=== PATIENT | female | born 1970 | race Caucasian/White ===

== ENCOUNTER 2025-08-24 18:30 | Observation (INO) | payer BC, SELFPAY ==
[2025-08-24] VITALS (7 sets, daily range): BP systolic 108–145; BP diastolic 67–86; PULSE 87; O2SAT 100; BMI 39.3; BMI 38.4
--- NOTE | 2025-08-24 15:44 | ED.GENMED ---
History of Present Illness
General
Chief Complaint: Head Injury
Source: patient
Exam Limitations: none
Time Seen by Provider: 08/24/25 14:31
Nursing documentation reviewed up to this point in time: agreed with
History of Present Illness
History of Present Illness:
Patient's status post head injury after syncopal episode while she was at work, presents to ED secondary to continual headache, dizziness, slurred speech, and difficulty ambulating. On the day of the injury, patient was evaluated at different
emergency department, where she received normal CT scan along with workup. Since then, patient has followed up with her primary care physician multiple occasions, and was recently prescribed Topamax for ongoing headache, with mild improvement.
Patient has been referred to obtain MRI brain as an outpatient, neurology consultation. Unfortunately, for the patient, the earliest appointment available is in November or January of next year. Due to ongoing symptoms, patient did not feel that she
can wait until diagnosed. Denies fever or chills. Denies vomiting. Denies loss of appetite. Denies loss of sensation or weakness.
Past History
Past History
ED Past Medical History: Other (Psoriatic/osteo-/rheumatoid arthritis) and Other (Gastric bypass 2008 status post cholecystectomy)
Social History
Tobacco: Non-smoker
Alcohol: Occasional
Personal: Single
Family History
Family History: Other (Diabetes, coronary artery disease, breast cancer, bipolar)
Review of Systems
Review of Systems
Allergies reviewed?: Yes
All Other Systems: ROS reviewed and negative except as documented in HPI and ROS
Constitutional: Reports no symptoms
Respiratory: Reports no symptoms
Cardiac: Reports no symptoms; Denies chest pain or palpitations
ABD/GI: Reports no symptoms; Denies nausea or vomiting
: Reports no symptoms; Denies incontinence
Musculoskeletal: Reports no symptoms
Skin: Reports no symptoms
Neurological: Reports dizzy and headache
Phy Exam
Physical Exam
Physical Exam:
Physical Exam
General: mild distress, not acutely ill. afebrile
Head: nc/at. eomi
Neck: supple. normal range of motion.
Heart: s1/s2 regular rate and rhythm
Lungs: no acute respiratory distress. clear bilaterally
Abdomen: normal bowel sounds. not tender.
Neuro: alert and oriented x 3. no focal sensory/motor deficit. slowed/slurred speech, but coherent
Skin: no rash
Psychiatric: well kept. interactive and cooperative
Extremities: no edema. no calf tenderness.
Course
Orders/Labs/Results
Orders:
Orders
08/24/25 Breakfast
Regular
At Your Request: Full Participation
Does patient need a safe tray?: No
08/24/25 15:40
Physical Therapy Consult [Pt Eval And Treat] Urgent
Activity Level: As Tolerated
08/24/25 16:56
Basic Metabolic Panel Urgent
Complete Blood Count/No Diff Urgent
Magnesium Urgent
TSH Urgent
08/24/25 17:33
0.9% Sodium Chloride 500 ml [Nss] 500 ml IV BOLUS
Acetaminophen [Tylenol] 650 mg PO NOW STA
08/24/25 18:08
CT Head W/o Iv Contrast Stat
Comment:
Reason For Exam: JAMES
08/24/25 18:19
Admit/Transfer Patient As Directed
Co-Sign Provider:
Level of Care: Observation services
Assign to:: Medical/Surgical
Physician / Group: gosia conklin
Diagnosis: post concussion syndrome
08/24/25 18:20
Code Status As Directed
Resuscitation Status: Full Code
PRN Pain Medication Management As Directed
May give lesser potent ordered pain med per pt: Yes
preference::
Protocol:: Medication orders for pain may be administered in a
manner that supports deferring to patient preference
when the pt is:
- Requesting an ordered lesser potent pain medication.
Least to most potent pain medications are defined
as: acetaminophen < NSAID < tramadol < opioids
(morphine, oxycodone, hydromorphone).
- Requesting a lesser dose of the same medication IF
ORDERED.
- Requesting a less intrusive route of administration
if both routes are prescribed by the provider (PO <
IV).
08/24/25 21:12
Acetaminophen [Tylenol] 650 mg PO Q4HPRN PRN
Bisacodyl [Dulcolax] 10 mg RECTAL [id number] PRN
Docusate W/Senna [Senokot-S] 1 tablet PO BIDPRN PRN
Polyethylene Glycol Powder [Miralax] 17 grams PO DAILYPRN PRN
Tramadol HCl [Ultram] 50 mg PO TID PRN severe pain
08/24/25 21:12
NEUROLOGY CONSULT Routine
Consulting Provider: Hernan Shaw
Was physician already notified: Yes
MR Brain Without Contrast Routine
Comment:
Reason For Exam: syncope
Recent pill cam endoscopy?: No
Activity As Directed
Activity Level: As Tolerated
Neurological Checks As Directed
Frequency: Per unit guidelines
Pneumatic Compression Sleeves As Directed
Type: Knee high
Vital Signs As Directed
Frequency: Per unit guidelines
DX Deep Vein Thrombosis Video Routine
08/24/25 23:00
Gabapentin [Neurontin] 1,200 mg PO BID
08/25/25 06:00
Basic Metabolic Panel IN AM
Complete Blood Count/No Diff IN AM
08/25/25 08:00
Cyclobenzaprine HCl [Flexeril] 10 mg PO DAILY
Escitalopram Oxalate [Lexapro] 20 mg PO DAILY
Topiramate [Topamax] 25 mg PO DAILY
Abnormal Lab Results
08/24/25
16:56
RBC 4.13 L 10^6/uL
(4.20-5.40)
Hgb 11.9 L g/dL
(12.0-16.0)
Hct 35.3 L %
(37.0-47.0)
Carbon Dioxide 32 H mmol/L
(22-30)
BUN 22 H mg/dl
(7-17)
08/24/25 16:56
08/24/25 16:56
Vital Signs
Initial and Last Documented VS:
Initial Vital Signs
Temp Pulse Resp BP Pulse Ox
98.0 F 83 20 108/73 94
08/24/25 14:10 08/24/25 14:10 08/24/25 14:10 08/24/25 14:10 08/24/25 14:10
Last Documented Vital Signs
Temp Pulse Resp BP Pulse Ox
98.7 F 80 18 124/86 96
08/24/25 23:06 08/24/25 23:06 08/24/25 23:06 08/24/25 23:06 08/24/25 23:06
MDM/Problems Addressed
MDM/Problems Addressed:
Patient evaluated by physical therapy in the ED who feels the patient is unsafe to be discharged home at this time, as patient is quite symptomatic with dizziness, photo/phonophobia, and unstable gait. As such, patient will be admitted for further
evaluation and treatment, including potential neurology evaluation and additional imaging studies as needed
*Pulse Oximetry
SaO2: 94
Oxygen Mode of Delivery: Room air
Patient hypoxic: no
*Critical Care Note
Total Time (30-74mins, 75-104mins- exclusive of procedures): Not Applicable
ED Attending Note
-
Portions of this chart may have been created with voice recognition software.� Occasional wrong word or��sound alike� substitutions may have occurred due to the inherent limitations of voice recognition software.
Discharge Plan
Departure
Patient Disposition: Admit
Date of Disposition: 08/24/25
Time of Disposition: 17:41
Admit to: Telemetry
Presentation/result/management discussed w/ accepting MD/DO: Hospitalist
Discharge Problem:
Post concussive syndrome
Interventions
Interventions:
*Risk Screen - Suicide Last Done: 08/24/25 16:29
*General Assessment Last Done: 08/24/25 14:10
*Neglect/Abuse Screening Last Done: 08/24/25 16:29
*ED- Fall Risk Assessment Last Done: 08/24/25 16:29
*ED COVID-19 Vaccine History Last Done: 08/24/25 16:29
*ED Influenza Vaccine History Last Done: 08/24/25 16:29
*Nursing Disposition Last Done: 08/24/25 20:26
ED- Neurological Assessment Last Done: 08/24/25 16:29
ED-Skin Assessment Last Done: 08/24/25 16:29
Discharge Date and Time
Discharge Date/Time: 08/24/25 20:27
[2025-08-24 17:16] LABS: Hematocrit 35.3 % (37.0-47.0); Hemoglobin 11.9 g/dL (12.0-16.0); Mean Corp Hgb Conc. 33.7 g/dL (33.0-37.0); Mean Corpuscular Volume 85.5 fL (81.0-99.0); Platelet Count 258 10^3/uL (130-400); Red Cell Dist. Width 13.8 % (11.5-14.5)
[2025-08-24 17:24] LABS: Blood Urea Nitrogen 22 mg/dl (7-17); Calcium 8.9 mg/dl (8.4-10.2); Carbon Dioxide 32 mmol/L (22-30); Chloride 102 mmol/L (98-107); Estimated Creatinine Clearance 118 ml/min; Glucose 86 mg/dl (70-99); Magnesium 2.1 mg/dl (1.6-2.3); Potassium 4.0 mmol/L (3.5-5.1); Sodium 137 mmol/L (135-145); eGFR > 60.00
--- NOTE | 2025-08-24 17:43 | HPS.HSE ---
Family Physician
-
Family Physician: Darien Rivera
Chief Complaint
-
fall with slurred speech.
History of Present Illness
55-year-old with past medical history for rheumatoid arthritis presented to us with post head injury after syncopal episode while she was at work on August 05. 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 patient was unresponsive for 2 minutes. EMS arrived but she did not go to the hospital the same day. She felt better after taking 2 glucose tablets. The following day she was evaluated by PCP, she had an blood work which was
normal . She had an Holter monitor done as outpatient which was normal. She had a CT head which was normal. Patient continued to have slurred speech, off balance, headache and dizzy. patient supposed to get MRI and neuro eval but due to the
persistent symptoms, neuro asked her to ER. she was started on Topamax two days ago. Patient denied any fever, chills, cough, congestion. Patient denied any chest pain or short of breath. Patient denied any abdominal pain, nausea, vomiting or
diarrhea. Patient denied dysuria hematuria.
Patient received Tylenol, normal saline in ER. Admitting for further manage
Medical History
Past Medical History
Past Medical History: Reports Other
Additional Past Medical History:
Fibromyalgia, osteoarthritis, psoriatic arthritis, gestational diabetes, eclampsia
Past Surgical History: Reports Other
Additional Past Surgical History:
Cholecystectomy, gastric bypass, , cholecystectomy
Social History
Tobacco: Non-smoker
Alcohol: None
Drug: None
Personal: Single
Living: With Family
Employment: Employed
Family History
Family History: Not pertinent
Allergies / Home Medications
Allergies reflects when Allergies were last updated in [employer].
Home Medications with original date entered in [employer]
Allergy/Medication List:
Allergies
Allergy/AdvReac Type Severity Reaction Status Date / Time
ampicillin Allergy Anaphylaxis Verified 08/24/25 14:10
Cephalosporins Allergy Anaphylaxis Verified 08/24/25 14:10
ibuprofen Allergy Anaphylaxis Verified 08/24/25 14:10
NSAIDS (Non-Steroidal Allergy Anaphylaxis Verified 08/24/25 14:10
Anti-Inflamma
Penicillins Allergy Anaphylaxis Verified 08/24/25 14:10
latex Allergy Unknown Uncoded 08/24/25 14:10
Home Medications
montelukast 10 mg tablet 10 mg PO DAILY 02/08/13
tramadol 50 mg tablet 50 mg PO TID 02/08/13
Iron 65 mg PO BID 10/22/16
amitriptyline 25 mg tablet 25 mg PO HS 10/22/16
ascorbic acid (vitamin C) 500 mg tablet (Vitamin C) 500 mg PO BID 10/22/16
biotin 500 mcg capsule 500 mcg PO BID 10/22/16
calcium citrate 400 mg PO DAILY 10/22/16
cetirizine 10 mg tablet 10 mg PO DAILY 10/22/16
cholecalciferol (vitamin D3) 25 mcg (1,000 unit) capsule (Vitamin D3) 5,000 unit PO DAILY 10/22/16
ciprofloxacin HCl 500 mg tablet 500 mg PO BID 10/22/16
cyanocobalamin (vitamin B-12) 1,000 mcg tablet 1,000 mcg sublingual DAILY 10/22/16
docusate sodium 100 mg capsule 100 mg PO BID 10/22/16
magnesium 200 mg tablet 200 mg PO DAILY 10/22/16
norgestimate 0.25 mg-ethinyl estradiol 0.035 mg tablet ([place]) 1 ea PO DAILY 10/22/16
vitamin B complex-folic acid 0.4 mg tablet (Super B Maxi Complex) 0.4 mg PO DAILY 10/22/16
vitamin E (dl, acetate) 180 mg (400 unit) capsule 400 units PO DAILY 10/22/16
Review of Systems
-
Constitutional: Reports No Symptoms
EENT: Reports No Symptoms
Respiratory: Reports No Symptoms
Cardiac: Reports No Symptoms
Abdomen/GI: Reports No Symptoms
: Reports No Symptoms
Musculoskeletal: Reports No Symptoms
Skin: Reports No Symptoms
Neurological: Reports Dizzy and Headache
Endocrine: Reports No Symptoms
Hematologic/Lymphatic: Reports No Symptoms
Psych: Reports No Symptoms
Physical Exam
Vital Signs
Vital Signs
Temp Pulse Resp BP Pulse Ox
98.0 F 87 20 110/80 98
08/24/25 14:10 08/24/25 17:00 08/24/25 14:10 08/24/25 17:00 08/24/25 17:00
Physical Exam
General: Well Developed, Well Nourished and No Apparent Distress
HEENT: NormoCephalic, Moist mucous membranes and Atraumatic
Respiratory: Clear
Cardiac: S1/S2 and Regular Rhythm; No Murmur or Rub
GI: Soft, Non Tender, Non Distended and Normal Bowel Sounds; No Organomegaly
Rectal: Deferred by Provider
Musculoskeletal: No Clubbing, No Cyanosis and No Edema
Skin: No Rash
Neuro: Slurred Speech
Laboratory Results
-
08/24/25 16:56
08/24/25 16:56
Data Reviewed
-
Lab Data: Labs Reviewed by me
Impression/Plan
-
# Syncope/postconcussion syndrome
- Tylenol as needed for headache
-Topamax continue
- Will obtain CT of head and MRI
- Neurology consult
-PT consult.
# Anemia of chronic disease
- Hemoglobin stable at 11.9, no active bleeding
- Continue to monitor
# Psoriatic arthritis
- Gabapentin, tramadol continued
# GERD
- PPI continued
# DVT prophylaxis
- SCDs
#CODE STATUS
- Full code
[2025-08-24] MEDS: NSS 500 IV (17:53)
[2025-08-24] MEDS: TYLENOL 650 MG PO (17:53)
[2025-08-24 17:54] LABS: TSH 0.63 uIU/ml (0.47-4.68)
--- NOTE | 2025-08-24 18:13 | W.PN.UPDATE ---
Addendum entered and electronically signed by Jaquan Quevedo MD 08/25/25 07:34:
08/24/25 HCT
No acute intracranial abnormality noted.
There are apparent hypodensities within the bifrontal white matter which are nonspecific and possibly artifactual although considered further evaluation with dedicated MRI.
UDS
08/25/25
02:33
Ur Amphetamines Screen Positive H
Addendum entered and electronically signed by Jaquan Quevedo MD 08/24/25 19:51:
Records from ED visit @ [facility] on 08/14/25, including CT head report which was normal.
Scanned into the chart
Original Note:
Update Note
Progress Note Update
This note serves as an addendum to the H&P by machine grainer INNA�
Ashleigh WINNIE�
HPI�
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 patient refused to go to hospital
suggested by EMS because she felt better after taking 2 glucose tablets. Then she was seen by PCP on following day. Report unremarkabler bllod work, had an Holter monitor done as outpatient which was normal. Report OP HCT was normal. No prior
HCT at .
- pw persistent slurred speech, unsteady gait , balance dysfunction, JAMES and dizzy.
- plan for OP MRI and neuro eval but due to the persistent symptoms, Primary neurologist suggest ER evaluatio
- she was started on Topamax two days ago by Primary neurologist
Relevant VS
Temp Pulse Resp BP Pulse Ox
98.0 F 87 20 110/80 98
08/24/25 14:10 08/24/25 17:00 08/24/25 14:10 08/24/25 17:00 08/24/25 17:00
PE
Class II Obesity - BMI 39
Gen: anxious, slow cognitive speed , easily irrtable
HEENT: atraumatic head
Neck: supple
Lungs: CTA
Cor: RRR S1 s2
Abdomen:�soft benign
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
No nystagmus
somewhat slow cognitive speed but appropriate answer
speech is slurred but fluent in expressive and receptive language
symmetric face
no tongue deviation with protrusion
Symmetric tone and strength
FNT: disorganized in both FNT but hit the target accurately
Grossly NFND
MS: edema
Psych: appropriate , preserved social skills
Relevant Data
08/24/25
16:56
RBC 4.13 L
Hgb 11.9 L
Hct 35.3 L
Carbon Dioxide 32 H
BUN 22 H
Pending UDS
Pending stat HCT
NO prior hospitalist admission:
ASSESSMENT & PLAN
Presumed protracted post concussion syndrome vs subacute CVA
Rt hand dominant
- Slurred but fluent speech, balance dysfunction, unsteady gait
- NFND on my exam
- c/w [employer] Topamax
- Pending HCT
- Brain MRI in AM
- PT consult
- Neuro consult
Chronic anemia - last Hgb was in 2016
HX Gastric bypass surgery 2007
- Admission Hgb 11.9
- clinically no active bleeding
- FU Hgb
- Empiric Banana bag in case chr vitamin deficiency due to Gastric bypass surgery
Psoriatic arthritis
Rheumatoid arthritis
- [employer] tramadol, Gabapentin
DVT Px: SCD
Full Code:
OBS TLM
[2025-08-24] MEDS: MULTIVITAMIN 1011 ML IV (20:13)
[2025-08-24] MEDS: MULTIVITAMIN 1011 MG IV (20:13)
[2025-08-24] MEDS: NEURONTIN 1200 MG PO (21:58)
[2025-08-24] MEDS: ULTRAM 50 MG PO (21:59)
[2025-08-24 22:05] LABS: Glucose - Point of Care 86 mg/dl (70-99)
--- NOTE | 2025-08-24 22:32 | PTCARENOTE ---
Receive pt from ER. Pt alert oriented X3, in no distress. Pt assist X1 w/cane to bed. Pt oriented to the room, call ramirez within reach. Pt on NSS on telemonitor. VSS (T=99, HR=91, RR=18, VS=783/67, SPo2=94-96% on RA). Pt complains about headache on
the right temporal area that radiates to the occipital area. The pain is sharp (8/10) and comes very fast. Pt given Ultram and Topamax. Pt reports hypoglycemia at times. BS checked=86. Will continue to monitor the pt.
[2025-08-24] MEDS: TOPAMAX 25 MG PO (23:08)
[2025-08-25] MEDS: TYLENOL 650 MG PO (03:25)
[2025-08-25 03:35] VITALS: BP 103/57
[2025-08-25 06:06] LABS: Hematocrit 32.7 % (37.0-47.0); Hemoglobin 11.0 g/dL (12.0-16.0); Mean Corp Hgb Conc. 33.6 g/dL (33.0-37.0); Mean Corpuscular Volume 89.3 fL (81.0-99.0); Platelet Count 221 10^3/uL (130-400); Red Cell Dist. Width 13.9 % (11.5-14.5)
[2025-08-25 06:26] LABS: Blood Urea Nitrogen 26 mg/dl (7-17); Calcium 8.7 mg/dl (8.4-10.2); Carbon Dioxide 31 mmol/L (22-30); Chloride 105 mmol/L (98-107); Estimated Creatinine Clearance 100 ml/min; Glucose 82 mg/dl (70-99); Potassium 4.7 mmol/L (3.5-5.1); Sodium 135 mmol/L (135-145); eGFR > 60.00
--- NOTE | 2025-08-25 07:13 | CON.NEURO ---
Neuro Assessment/Plan
Assessment
Oma Dillon is a 55 F with PMH rheumatoid arthritis presenting with multiple neurological symptoms following head injury. She likely meets criteria for moderate to severe traumatic brain injury given persistence of multiple neurological symptoms
including amnesia > 21 days post fall, although notably reports only <2 minutes of loss of consciousness. Her current symptoms include post-traumatic headache with migrainous features (photophobia, phonophobia, nausea). Other symptoms including
dizziness, dysarthria, ataxia, cognitive slowing are likely also secondary to TBI. Exam with disorientation, impaired short-term recall, intention tremor, and ataxic gait. Initial head CT without acute pathology (e.g. large bleed or skull fracture)
however non-specific bifrontal white matter hypodensities L>R. MRI brain will be helpful to further evaluate this as well as any other signs of TBI (microbleeds, diffuse axonal injury etc).
In terms of management, she was initially started on topiramate for migraines, although notably this can worsen cognitive slowing, so would not be the ideal first line agent. TCAs are limited due to current SSRI use, and beta blockers due to
hypotension. She also notes that triptans have been minimally effective.
Will trial IV fluids, magnesium, and metoclopramide for now, with followup outpatient.
Plan
- obtain MRI brain without contrast
- START 1L lactated ringers solution
- START magnesium 2g IV BID
- DISCONTINUE topiramate due to concern for worsening mental clouding
- replace ondansetron with metoclopramide 5-10 mg q8h PRN (for headaches and nausea) - check QTx
- continue acetominophen 650-1000 mg q8h PRN, consider ibuprofen as well
- if no evidence of stroke or bleed on MRI can also consider sumatriptan 50mg PRN, can repeat x1 after 10 minutes if not improved
- long-term: can consider transition from escitalopram to amitriptyline or nortriptyline, however this will require longer cross-titration
- outpatient followup including consdieration of cognitive behavioral therapy and comprehensive TBI center/[facility] (ask to call [phone] - eg. Linda SARAVIA)
Consultation
Order
Date of Consultation: 08/25/25
Requesting Provider: Vernon
Reason for Consult: Trauamtic brain injury
Subjective/Objective
Subjective Data
Date of Service: August 25, 2025
Oma Dillon is a 55 F with PMH rheumatoid arthritis presenting with multiple neurological symptoms following head injury.
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 She hit a metal bar on her occiput and then hit the ground on the right parietal region. She reports having 'low
blood sugar' at the time of fall and did not eat in the AM. EMS arrived and she remembers waking up on the floor.
She followed up with PCP and obtained head CT which was reportedly normal. She was also scheduled to get Holter monitoring. Over the course of the next few weeks she developed multiple symptoms including
- Headache described as severe 'sharp' 'like a mallet' starting in the vertex and occiput and radiating holocephalic, associated with photophobia, phonophobia, nausea, but no arua. Headaches last several hours at a time and have occurred almost
daily since the fall.
- Dizziness described as lightheadedness but not room spinning vertigo, non-positional
- Dysarthria
- Ataxia and ambulatory dysfunction, oftentimes 'walking into cantu' with dysequillibirum
- Cognitive slowing, anterograde amnesia, slowed speech
- Tremor vs myoclonus
- Denies retrograde amnesia or other new focal neurological deficits.
She was recommended to followup outpatient however due to persistent symptoms, she was recommended for ED evaluation. She was reportedly started on topiramate 25 mg 2 days prior, which she states has mildly improved headaches.
She also takes escitalopram 20 mg, gabapentin 1200 mg BID, ondansetron 4mg PRN, and tramadol 50 mg TID PRN.
Objective Data
Vital Signs
Temp Pulse Resp BP Pulse Ox
36.8 C 80 18 103/57 95
08/25/25 03:35 08/25/25 03:35 08/25/25 03:35 08/25/25 03:35 08/25/25 03:35
Lab Results
08/25/25 05:25
08/25/25 05:25
Sodium 135 mmol/L (135-145) 08/25/25 05:25
Potassium 4.7 mmol/L (3.5-5.1) 08/25/25 05:25
BUN 26 mg/dl (7-17) H 08/25/25 05:25
Glucose 82 mg/dl (70-99) 08/25/25 05:25
Calcium 8.7 mg/dl (8.4-10.2) 08/25/25 05:25
Ur Buprenorphine Negative (Negative) 08/25/25 02:33
Patient Allergies
ampicillin Allergy (Verified 08/24/25 14:10)
Anaphylaxis
Cephalosporins Allergy (Verified 08/24/25 14:10)
Anaphylaxis
ibuprofen Allergy (Verified 08/24/25 14:10)
Anaphylaxis
NSAIDS (Non-Steroidal Anti-Inflamma Allergy (Verified 08/24/25 14:10)
Anaphylaxis
Penicillins Allergy (Verified 08/24/25 14:10)
Anaphylaxis
latex Allergy (Uncoded 08/24/25 14:10)
Unknown
NCHCT 08/24/25 no acute abnormalities, nonspecific L>R bifrontal white matter hypodensities
Past History
Past Medical / Surgical History
Past Medical History: Psychiatric (Anxiety, depression) and Other (Rheumatoid arthritis )
Social History
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
Review of Systems
-
All other systems: Reviewed and negative (apart from symptoms listed above )
Physical Exam
-
General: Well Developed, Well Nourished and No Apparent Distress
Eyes: PERRLA
HEENT: Normocephalic and Atraumatic
Psych: Unremarkable
Extended Neurological Exam
Attention Span & Concentration: Lethargic (Oriented to person, place, and time ), Mild Difficulty with 2 Step Request and Other (Slowed reaction time )
Memory: Recalls Objects (Recalls 1/3 words after 5 minutes, 2/3 with category cueing )
Tremor: With Action (Mild intention tremor bilaterally )
Involuntary Movement: None
Speech: Dysarthric and Other (Slowed speech however no aphasia )
Cranial Nerve II: Left Eye: Visual Levine Intact
Cranial Nerve II: Right Eye: Visual Levine Intact
Cranial Nerves III, IV, : Extraocular Movement: Extraocular Movement Full in all Directions
Cranial Nerve V: Facial Sensation: Facial Sensation Unremarkable to Cold
Cranial Nerve VII: Facial Symmetry: Normal Facial Symmetry
Cranial Nerve VIII: Hearing: Unremarkable Hearing to Normal Conversational Volume
Cranial Nerves IX, X: Palate Movement: Palate Elevation Symmetric
Cranial Nerve XI: Shoulder Shrug: Unremarkable
Cranial Nerve XII: Tongue Protusion: Midline
Muscle Strength, Overall: Full Throughout
Muscle Bulk & Tone: Bulk Unremarkable
Pronator Drift: No Drift in Upper Extremities and No Drift in Lower Extremities
Deep Tendon Reflexes: Other (2+ throughout, absent patellar )
Touch Sensation: Testing in Upper Extremities and Unremarkable
Coordination: Lorjfr-[id number]-rertlm Testing Unremarkable (apart from intention tremor )
Gait & Station: Other (Slow, unsteady gait, uses cane )
Data Reviewed
-
CT Head: Image Reviewed (CT 08/25, no acute abnormality, non-specific bifrontal white matter hypodensities L>R)
Medications
-
Active Medications
Generic Name Dose Route Start Last Admin
Trade Name Freq PRN Reason Stop Dose Admin
Acetaminophen 650 mg 08/24/25 21:12 08/25/25 03:25
Acetaminophen 325 Mg Tablet PO 09/21/25 21:11 650 mg
Q4HPRN PRN Administration
mild pain/JAMES/temp> 100.4F
Bisacodyl 10 mg 08/24/25 21:12
Bisacodyl 10 Mg Rectal Suppository RECTAL 09/21/25 21:11
[id number] PRN
constipation
Cyclobenzaprine HCl 10 mg 08/25/25 08:00
Cyclobenzaprine 10 Mg Tablet PO 09/22/25 07:59
DAILY EVARISTO
Escitalopram Oxalate 20 mg 08/25/25 08:00
Escitalopram 20 Mg Tablet PO 09/22/25 07:59
DAILY EVARISTO
Gabapentin 1,200 mg 08/24/25 23:00 08/24/25 21:58
Gabapentin 300 Mg Capsule PO 09/21/25 22:59 1,200 mg
BID EVARISTO Administration
Polyethylene Glycol 17 grams 08/24/25 21:12
Polyethylene Glycol Powder 17 Grams Packet PO 09/21/25 21:11
DAILYPRN PRN
constipation
Senna/Docusate Sodium 1 tablet 08/24/25 21:12
Docusate W/Senna (Renata-Colace) Tablet PO 09/21/25 21:11
BIDPRN PRN
constipation
Topiramate 25 mg 08/25/25 22:00
Topiramate 25 Mg Tablet PO 09/22/25 21:59
HS EVARISTO
Tramadol HCl 50 mg 08/24/25 21:12 08/24/25 21:59
Tramadol Hcl 50 Mg Tablet PO 09/21/25 21:11 50 mg
TID PRN Administration
severe pain
Home Medications
�Medication �Instructions �Recorded
tramadol 50 mg tablet 50 mg PO TID PRN severe pain 02/08/13
cyclobenzaprine 10 mg tablet 10 mg PO DAILY 08/24/25
escitalopram oxalate 20 mg tablet 20 mg PO DAILY 08/24/25
gabapentin 600 mg tablet 1,200 mg PO BID 08/24/25
ondansetron 4 mg disintegrating 4 mg PO Q6H n/v 08/24/25
tablet
topiramate 25 mg tablet (Topamax) 25 mg PO DAILY 08/24/25
[2025-08-25] MEDS: ULTRAM 50 MG PO (07:34)
[2025-08-25 07:55] VITALS: BP 130/73
[2025-08-25 07:58] LABS: Glucose - Point of Care 85 mg/dl (70-99)
[2025-08-25] MEDS: NEURONTIN 1200 MG PO ×2 (09:48→20:27)
[2025-08-25] MEDS: LEXAPRO 20 MG PO (09:48)
[2025-08-25] MEDS: LR 1000 IV (09:52)
[2025-08-25] MEDS: REGLAN 10 MG IV (10:03)
[2025-08-25] MEDS: ATIVAN 2 MG IV (11:19)
[2025-08-25] MEDS: NSS (PRESERVATIVE FREE) 1 ML IV (11:20)
--- NOTE | 2025-08-25 12:49 | W.PN.HOSP.TC ---
Today's Communication/Plan
-
Assessment / Plan
Assessment / Plan
General: No Apparent Distress, Comfortable and Conversant
HEENT: NormoCephalic, Moist mucous membranes, Atraumatic
Respiratory: Clear and Non Labored Respirations
Cardiac: S1/S2 and Regular Rhythm; No Rub or Gallop
GI: Soft, Non Tender, Non Distended and Normal Bowel Sounds
Musculoskeletal: No Edema, no deformity
Skin: Warm and dry
: NO [place]
Neuro: Awake, Alert, dysarthria, memory impairment
Psych: Calm and Intact Judgment/Insight
Ms. Dillon is a 55-year-old female with a medical history of rheumatoid arthritis, gastric bypass surgery, and fibromyalgia resents with persistent dysarthria and memory issues in addition to recurrent headaches. Her symptoms began after a fall with
head strike on 08/05/2025. 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 Apparently she hit her head on the white board and was unresponsive for approximately 2 minutes. She was evaluated by EMS
however she declined evaluation in the emergency department at that time. She was later evaluated by her PCP with unremarkable blood work and CT head. She also had Holter monitoring with no evidence of arrhythmia. She was started on Topamax with
minimal effect. She had planned MRI and outpatient neuro evaluation, however due to the severity of her symptoms she returned to the emergency department for further evaluation.
Traumatic brain injury:
- Secondary to fall with head strike
- Continues to have dysarthria and memory issues, intermittent headaches
- CT brain imaging shows nonspecific bifrontal white matter hypodensities
- Will obtain MRI for further characterization
- Appreciate neurology evaluation and guidance, starting magnesium 2 mg IV twice daily, discontinuing topiramate
- Replace ondansetron with metoclopramide
- If MRI shows no evidence of stroke or bleed can start sumatriptan 50 mg as needed
- Pain control with Tylenol, can add Motrin if needed
- In the outpatient setting neurology is recommending transition from escitalopram to amitriptyline or nortriptyline which will require gradual cross titration
- Recommend outpatient cognitive behavioral therapy; [facility] (ask to call [phone] - eg. Linda SARAVIA)
DVT prophylaxis: SCDs
CODE STATUS: Full code
Anticipated Discharge: 24 - 48 hours
Subjective/Interval History
-
Date of Service: August 25, 2025
Patient was seen and examined at bedside this morning. Continues to have dysarthria and memory difficulties. Awaiting MRI.
Objective Data
-
Labs:
Laboratory Results
08/25/25
05:25
WBC 5.2
Hgb 11.0 L
Hct 32.7 L
Plt Count 221
Sodium 135
Potassium 4.7
Chloride 105
Carbon Dioxide 31 H
BUN 26 H
Creatinine 0.7
Glucose 82
Calcium 8.7
Vital Signs:
Vital Signs
Temp Pulse Resp BP Pulse Ox
98.3 F 87 16 130/73 96
08/25/25 07:55 08/25/25 07:55 08/25/25 07:55 08/25/25 07:55 08/25/25 07:55
I&O
08/24/25 08/25/25 08/26/25
06:59 06:59 06:59
Intake Total 2480 / 2480
Output Total 275 / 275
Balance 2205 / 2205
Review of Systems
-
History Source: Patient
All other systems: Reviewed and negative
Neuro: Reports Other (Dysarthria, memory issues, intermittent headaches)
Physical Exam
-
General: No Apparent Distress
[2025-08-25 13:02] LABS: Glucose - Point of Care 83 mg/dl (70-99)
[2025-08-25 13:03] VITALS: BP 122/76
[2025-08-25] MEDS: MAGNESIUM SULFATE 104 GRAMS IV ×2 (13:42→20:27)
[2025-08-25 15:30] VITALS: BP 147/83
[2025-08-25 16:26] LABS: Glucose - Point of Care 97 mg/dl (70-99)
[2025-08-25 19:34] VITALS: BP 100/76
[2025-08-25] MEDS: FLEXERIL 10 MG PO (21:32)
[2025-08-25 23:30] VITALS: BP 121/81
[2025-08-26 03:10] VITALS: BP 115/76
[2025-08-26] MEDS: REGLAN 10 MG IV (07:26)
[2025-08-26] MEDS: TYLENOL 650 MG PO (07:26)
[2025-08-26] MEDS: MAGNESIUM SULFATE 104 GRAMS IV (08:05)
[2025-08-26] MEDS: ULTRAM 50 MG PO (08:05)
[2025-08-26 08:06] VITALS: BP 131/89
[2025-08-26] MEDS: NEURONTIN 1200 MG PO (08:06)
[2025-08-26] MEDS: LEXAPRO 20 MG PO (08:06)
[2025-08-26 08:54] LABS: Magnesium 2.2 mg/dl (1.6-2.3)
[2025-08-26 11:43] LABS: Glucose - Point of Care 39 mg/dl (70-99)
[2025-08-26 12:00] LABS: Glucose - Point of Care 82 mg/dl (70-99)
[2025-08-26 12:05] VITALS: BP 119/70
--- NOTE | 2025-08-26 12:43 | W.DCSUMMARY ---
Discharge Summary
Discharge Data
Date of Admission: 08/24/25
Date of Discharge: 08/26/25
Total time spent discharging patient (in min): 56
-
Pending Results: No
Hospital Course
Ms. Dillon is a 55-year-old female with a medical history of rheumatoid arthritis, gastric bypass surgery, and fibromyalgia resents with persistent dysarthria and memory issues in addition to recurrent headaches. Her symptoms began after a fall with
head strike on 08/05/2025. 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 Apparently she hit her head on the white board and was unresponsive for approximately 2 minutes. She was evaluated by EMS
however she declined evaluation in the emergency department at that time. She was later evaluated by her PCP with unremarkable blood work and CT head. She also had Holter monitoring with no evidence of arrhythmia. She was started on Topamax with
minimal effect. She had planned MRI and outpatient neuro evaluation, however due to the severity of her symptoms she returned to the emergency department for further evaluation.
MRI was obtained during this hospitalization which showed no evidence of stroke or bleeding, but did show evidence of traumatic brain injury suspected due to her fall with head strike. She was evaluated by neurology who recommended discontinuing
her topiramate, giving sumatriptan 50 mg as needed for severe headache (max dose of 100 mg daily), starting IV magnesium, and replacing ondansetron with metoclopramide. She can continue as acetaminophen and Motrin for moderate pain control.
Neurology also recommends eventual transition from escitalopram to amitriptyline or nortriptyline in the outpatient setting which will require gradual cross titration. Neurology also recommends outpatient cognitive behavioral therapy; [facility] (ask to call [phone] - eg. Linda SARAVIA). She will need outpatient follow-up with her PCP and with neurology. She will need to have occasional EKGs to monitor QTc while using metoclopramide.
General: No Apparent Distress, Comfortable and Conversant
HEENT: NormoCephalic, Moist mucous membranes, Atraumatic
Respiratory: Clear and Non Labored Respirations
Cardiac: S1/S2 and Regular Rhythm; No Rub or Gallop
GI: Soft, Non Tender, Non Distended and Normal Bowel Sounds
Musculoskeletal: No Edema, no deformity
Skin: Warm and dry
: NO [place]
Neuro: Awake, Alert, dysarthria, memory impairment
Psych: Calm and Cooperative
Discharge Plan
-
Patient Disposition: Home (Routine Discharge)
Discharge Diagnosis/Procedures: Traumatic Brain Injury
Activity Restrictions/Additional Instructions:
You were admitted for evaluation and management of dysarthria, memory issues, and recurrent headaches. Your symptoms began after a fall with head strike on 08/05/2025. Brain imaging during this admission showed that you likely suffered a traumatic
brain injury due to the fall.
You were evaluated by the neurologist who made some medication changes
- Change Zofran to metoclopramide for nausea
- Start sumatriptan 50 mg for severe headache (max dose of 100 mg daily)
- For mild to moderate headaches you can use acetaminophen and ibuprofen
- In the outpatient setting with your primary care physician or neurologist, you can transition from escitalopram to amitriptyline or nortriptyline which will require gradual cross titration
- Recommend outpatient cognitive behavioral therapy; [facility] at [facility] (ask to call [phone] - eg. Linda SARAVIA)
You will need to follow-up with your primary care physician and with a neurologist. You will need occasional EKGs to monitor your QTc since you you are being treated with metoclopramide.
Referrals:
Darien Rivera DO [Family Provider, Internal Medicine]
Hernan Shaw MD [Active, Neurology]
Prescriptions:
New
metoclopramide HCl 5 mg tablet
5 mg PO Q8H PRN (Reason: nausea and vomiting) Qty: 10 0RF
sumatriptan succinate 50 mg tablet
50 mg PO Q2H MDD 100 mg PRN (Reason: migraine headache) Qty: 10 0RF
Continued
tramadol 50 MG tablet
50 mg PO TID PRN (Reason: severe pain)
cyclobenzaprine 10 mg tablet
10 mg PO DAILY
gabapentin 600 mg tablet
1,200 mg PO BID
escitalopram oxalate 20 mg tablet
20 mg PO DAILY
Discontinued
topiramate [Topamax] 25 mg Tablet
25 mg PO DAILY
ondansetron 4 mg tablet,disintegrating
4 mg PO Q6H
Discharge Orders:
Discharge Patient (As Directed); Ordered 08/26/25
Ordered By: Catrachito Khan
Discharge Date and Time
Print Language: BELARUSIAN
[2025-08-26 15:15] VITALS: BP 119/80
--- NOTE | 2025-08-26 15:26 | W.PN.NEURO.1 ---
Addendum entered and electronically signed by Johnathon Roca MD 08/26/25 19:57:
The MRI of the brain does not show any acute intracranial infarction.
Original Note:
Today's Communication / Plan
-
Today the patient is doing better and is able to communicate well. She says that her headache is less today and she rates it as a 4 out of 10.
The patient is alert and oriented x 3, her speech is clear and he does not have any gross focal weakness.
The plan is to start Elavil 25 mg at nighttime and to gradually transition from escitalopram to Elavil.
Follow-up in the neurology clinic in 2 weeks.
Neuro Assessment/Plan
Assessment
Oma Dillon is a 55 F with PMH rheumatoid arthritis presenting with multiple neurological symptoms following head injury. She likely meets criteria for moderate to severe traumatic brain injury given persistence of multiple neurological symptoms
including amnesia > 21 days post fall, although notably reports only <2 minutes of loss of consciousness. Her current symptoms include post-traumatic headache with migrainous features (photophobia, phonophobia, nausea). Other symptoms including
dizziness, dysarthria, ataxia, cognitive slowing are likely also secondary to TBI. Exam with disorientation, impaired short-term recall, intention tremor, and ataxic gait. Initial head CT without acute pathology (e.g. large bleed or skull fracture)
however non-specific bifrontal white matter hypodensities L>R. MRI brain will be helpful to further evaluate this as well as any other signs of TBI (microbleeds, diffuse axonal injury etc).
In terms of management, she was initially started on topiramate for migraines, although notably this can worsen cognitive slowing, so would not be the ideal first line agent. TCAs are limited due to current SSRI use, and beta blockers due to
hypotension. She also notes that triptans have been minimally effective.
Will trial IV fluids, magnesium, and metoclopramide for now, with followup outpatient.
Plan
- obtain MRI brain without contrast
- START 1L lactated ringers solution
- START magnesium 2g IV BID
- DISCONTINUE topiramate due to concern for worsening mental clouding
- replace ondansetron with metoclopramide 5-10 mg q8h PRN (for headaches and nausea) - check QTx
- continue acetominophen 650-1000 mg q8h PRN, consider ibuprofen as well
- if no evidence of stroke or bleed on MRI can also consider sumatriptan 50mg PRN, can repeat x1 after 10 minutes if not improved
- long-term: can consider transition from escitalopram to amitriptyline or nortriptyline, however this will require longer cross-titration
- outpatient followup including consdieration of cognitive behavioral therapy and comprehensive [facility] center/[facility] (ask to call [phone] - eg. Linda SARAVIA)
Subjective/Objective
Subjective Data
Date of Service: August 26, 2025
The patient is doing well today.
Oma Dillon is a 55 F with PMH rheumatoid arthritis presenting with multiple neurological symptoms following head injury. She likely meets criteria for moderate to severe traumatic brain injury given persistence of multiple neurological symptoms
including amnesia > 21 days post fall, although notably reports only <2 minutes of loss of consciousness. Her current symptoms include post-traumatic headache with migrainous features (photophobia, phonophobia, nausea). Other symptoms including
dizziness, dysarthria, ataxia, cognitive slowing are likely also secondary to TBI.
Today the patient is doing better and is able to communicate well. She says that her headache is less today and she rates it as a 4 out of 10.
The patient is alert and oriented x 3, her speech is clear and he does not have any gross focal weakness.
The plan is to start Elavil 25 mg at nighttime and to gradually transition from escitalopram to Elavil.
Follow-up in the neurology clinic in 2 weeks.
Objective Data
Vital Signs
Temp Pulse Resp BP Pulse Ox
37.1 C 100 18 119/80 97
08/26/25 15:15 08/26/25 15:15 08/26/25 15:15 08/26/25 15:15 08/26/25 15:15
Lab Results
08/25/25 05:25
08/25/25 05:25
Sodium 135 mmol/L (135-145) 08/25/25 05:25
Potassium 4.7 mmol/L (3.5-5.1) 08/25/25 05:25
BUN 26 mg/dl (7-17) H 08/25/25 05:25
Glucose 82 mg/dl (70-99) 08/25/25 05:25
Calcium 8.7 mg/dl (8.4-10.2) 08/25/25 05:25
Ur Buprenorphine Negative (Negative) 08/25/25 02:33
Patient Allergies
ampicillin Allergy (Verified 08/24/25 14:10)
Anaphylaxis
Cephalosporins Allergy (Verified 08/24/25 14:10)
Anaphylaxis
ibuprofen Allergy (Verified 08/24/25 14:10)
Anaphylaxis
NSAIDS (Non-Steroidal Anti-Inflamma Allergy (Verified 08/24/25 14:10)
Anaphylaxis
Penicillins Allergy (Verified 08/24/25 14:10)
Anaphylaxis
latex Allergy (Uncoded 08/24/25 14:10)
Unknown
Vital Signs and Labs
-
Vital Signs and Labs:
Vital Signs
Temp Pulse Resp BP Pulse Ox
37.1 C 100 18 119/80 97
08/26/25 15:15 08/26/25 15:15 08/26/25 15:15 08/26/25 15:15 08/26/25 15:15
Lab Results
08/25/25 05:25
08/25/25 05:25
Sodium 135 mmol/L (135-145) 08/25/25 05:25
Potassium 4.7 mmol/L (3.5-5.1) 08/25/25 05:25
BUN 26 mg/dl (7-17) H 08/25/25 05:25
Glucose 82 mg/dl (70-99) 08/25/25 05:25
Calcium 8.7 mg/dl (8.4-10.2) 08/25/25 05:25
Ur Buprenorphine Negative (Negative) 08/25/25 02:33
Medications
-
Home Medications
�Medication �Instructions �Recorded
tramadol 50 mg tablet 50 mg PO TID PRN severe pain 02/08/13
cyclobenzaprine 10 mg tablet 10 mg PO DAILY Fibromyalgia 08/24/25
escitalopram oxalate 20 mg tablet 20 mg PO DAILY Mental 08/24/25
Health/Anxiety
gabapentin 600 mg tablet 1,200 mg PO BID Psoriatic arthritis 08/24/25
Outpatient PT, eval and treat #1 ea 08/26/25
metoclopramide HCl 5 mg tablet 5 mg PO Q8H PRN nausea and 08/26/25
vomiting #10 tabs
sumatriptan succinate 50 mg tablet 50 mg PO Q2H PRN migraine headache 08/26/25
#10 tabs
--- NOTE | 2025-08-26 15:30 | CM ---
Alert awake oriented patient who lives with her step dad [place] in a 1 story home with 3 steps to enter. 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
Reviewed PT . She said she checked and she had [address] [facility] outpt PT.She will resume out pt PT. provided a out pt PT script.
Observation letter given explained and pt signed on chart.
Her step dad [place] will drive her home.
No VN/SNF hx.
Pharmacy [facility]
PCP Dr Rivera
PLAN Home patient will set up out pt PT
== END 2025-08-26 16:01 | disposition home or self-care (01) ==
LOC: 4 EAST ACU 18:30
PROVIDERS: Registered Nurse; ADMITTING PHYSICIAN Internal Medicine; ATTENDING PHYSICIAN Internal Medicine; CONSULT PHYSICIAN Student in an Organized Health Care Education/Training Program; EMERGENCY PHYSICIAN Emergency Medicine; FAMILY PHYSICIAN Internal Medicine
DX: S06.891A Other specified intracranial injury with loss of consciousness of 30 minutes or less, initial encounter (principal); F07.81 Postconcussional syndrome; R55 Syncope and collapse; R51.9 Headache, unspecified; R47.81 Slurred speech; R42 Dizziness and giddiness; R47.1 Dysarthria and anarthria; D63.8 Anemia in other chronic diseases classified elsewhere; R29.818 Other symptoms and signs involving the nervous system; K21.9 Gastro-esophageal reflux disease without esophagitis; E66.812 Obesity, class 2; R26.2 Difficulty in walking, not elsewhere classified; L40.50 Arthropathic psoriasis, unspecified; M06.9 Rheumatoid arthritis, unspecified; M79.7 Fibromyalgia; R41.1 Anterograde amnesia; G25.2 Other specified forms of tremor; R26.0 Ataxic gait; R94.31 Abnormal electrocardiogram [ECG] [EKG]; F41.9 Anxiety disorder, unspecified; F32.A Depression, unspecified; W19.XXXA Unspecified fall, initial encounter; W22.09XA Striking against other stationary object, initial encounter; Y93.9 Activity, unspecified; Y92.9 Unspecified place or not applicable; Y99.0 Civilian activity done for income or pay; Z68.39 Body mass index [BMI] 39.0-39.9, adult; Z90.49 Acquired absence of other specified parts of digestive tract; Z98.84 Bariatric surgery status; Z83.3 Family history of diabetes mellitus; Z82.49 Family history of ischemic heart disease and other diseases of the circulatory system; Z80.3 Family history of malignant neoplasm of breast; Z81.8 Family history of other mental and behavioral disorders; Z79.899 Other long term (current) drug therapy; Z87.59 Personal history of other complications of pregnancy, childbirth and the puerperium; Z88.0 Allergy status to penicillin; Z88.6 Allergy status to analgesic agent; Z88.1 Allergy status to other antibiotic agents; Z91.040 Latex allergy status; Z79.891 Long term (current) use of opiate analgesic
CPT/HCPCS: 70450; 70551; 80048; 80306; 80307; 82962; 83735; 84443; 85027; 93005; 96361; 96374; 99284; G0378